=== PATIENT | female | born 1985 | race Caucasian/White ===

== ENCOUNTER 2024-03-20 14:13 | Outpatient (CLI) | payer BC, MEDICAID | END 2024-03-20 23:59 | disposition home or self-care (01) | LOC: RAD 14:13 | PROVIDERS: ATTEND Nurse Practitioner Family | DX: N85.4 Malposition of uterus (principal); N93.9 Abnormal uterine and vaginal bleeding, unspecified | CPT/HCPCS: 76830; 93976 ==